=== PATIENT | male | born 1955 | race Caucasian/White ===

== ENCOUNTER → 2017-09-10 08:26 | Outpatient (CLI) | payer OTHER, SELFPAY ==
[2017-09-10 10:24] LABS: BUN 18 mg/dL (7-18); Calcium,Total 8.2 mg/dL (8.5-10.1); Cholesterol 156 mg/dL (200); Creatinine, Serum 0.78 mg/dL (0.70-1.30); EST Glomerular Filtration Rate 107 mL/min (>60); Est Glom Filt Rate - Afr Amer 130 mL/min (>60); Glucose 107 mg/dL (74-106); Triglycerides 53 mg/dL
[2017-09-10 10:25] LABS: Anion Gap 4 (5-15); Chloride 107 mmol/L (98-107); High Density Lipoprotein 44 mg/dL; PSA,Total - Annual Screen 0.28 ng/mL (0.00-4.00); Sodium Level 141 mmol/L (136-145); Very Low Density Lipoprotein 11 mg/dL (5-40)
[2017-09-10 10:26] LABS: Hemoglobin A1c 5.8 % (4.2-6.3)
== END ==
PROVIDERS: Family Provider Family Medicine; PCP Family Medicine; Visit Provider Family Medicine
DX: I10 Essential (primary) hypertension (principal); R73.09 Other abnormal glucose; E78.00 Pure hypercholesterolemia, unspecified; Z12.5 Encounter for screening for malignant neoplasm of prostate
CPT/HCPCS: 36415; 80048; 80061; 83036; 84153; G0103

== ENCOUNTER → 2018-08-12 | Outpatient (CLI) | payer OTHER, SELFPAY ==
[2018-08-12 09:06] LABS: Hemoglobin A1c 5.9 % (4.2-6.3)
[2018-08-12 09:14] LABS: Anion Gap 4 (5-15); BUN 13 mg/dL (7-18); BUN/Creat Ratio 15.4 RATIO (10-20); Calcium,Total 8.4 mg/dL (8.5-10.1); Chloride 108 mmol/L (98-107); Cholesterol 177 mg/dL (200); Creatinine, Serum 0.84 mg/dL (0.70-1.30); EST Glomerular Filtration Rate 98 mL/min (>60); Est Glom Filt Rate - Afr Amer 118 mL/min (>60); Glucose 124 mg/dL (74-106); High Density Lipoprotein 42 mg/dL; Potassium 4.4 mmol/L (3.5-5.1); Sodium Level 144 mmol/L (136-145); Triglycerides 100 mg/dL; Very Low Density Lipoprotein 20 mg/dL (5-40)
== END | disposition home or self-care (01) ==
LOC: LAB 07:11
PROVIDERS: Family Provider Family Medicine; PCP Family Medicine; Referring Provider Family Medicine; Visit Provider Family Medicine
DX: R73.09 Other abnormal glucose (principal); E78.00 Pure hypercholesterolemia, unspecified; I10 Essential (primary) hypertension
CPT/HCPCS: 36415; 80048; 80061; 83036

== ENCOUNTER → 2019-06-08 | Outpatient (CLI) | payer OTHER, SELFPAY ==
[2019-06-08 10:37] LABS: ALB/GLOB Ratio 1.2 RATIO (0.9-2.4); AST(SGOT) 20 U/L (15-37); Alanine Aminotransfer ALT/SGPT 55 U/L (16-61); Albumin, Serum 4.1 g/dL (3.2-5.0); Alkaline Phosphatase 90 U/L (45-117); Anion Gap 4 (5-15); BUN 11 mg/dL (7-18); BUN/Creat Ratio 12.4 RATIO (10-20); Calcium,Total 8.7 mg/dL (8.5-10.1); Chloride 104 mmol/L (98-107); Cholesterol 192 mg/dL (200); Creatinine, Serum 0.89 mg/dL (0.70-1.30); EST Glomerular Filtration Rate 92 mL/min (>60); Est Glom Filt Rate - Afr Amer 112 mL/min (>60); Globulin 3.3 g/dL (2.2-4.2); Glucose 115 mg/dL (74-106); High Density Lipoprotein 40 mg/dL; PSA,Total - Annual Screen 0.27 ng/mL (0.00-4.00); Potassium 3.8 mmol/L (3.5-5.1); Protein, Total 7.4 g/dL (6.4-8.2); Sodium Level 140 mmol/L (136-145); Triglycerides 116 mg/dL; Very Low Density Lipoprotein 23 mg/dL (5-40)
== END | disposition home or self-care (01) ==
LOC: LAB 08:45
PROVIDERS: PCP Family Medicine; Referring Provider Family Medicine; Visit Provider Family Medicine
DX: I10 Essential (primary) hypertension (principal); E78.00 Pure hypercholesterolemia, unspecified; Z12.5 Encounter for screening for malignant neoplasm of prostate
CPT/HCPCS: 36415; 80053; 80061; 84153; G0103

== ENCOUNTER → 2020-06-10 06:04 | Outpatient (CLI) | payer OTHER, SELFPAY ==
[2020-06-10 07:22] LABS: ALB/GLOB Ratio 1.3 RATIO (0.9-2.4); AST(SGOT) 18 U/L (15-37); Alanine Aminotransfer ALT/SGPT 44 U/L (16-61); Albumin, Serum 4.1 g/dL (3.2-5.0); Alkaline Phosphatase 85 U/L (45-117); Anion Gap 5 (5-15); BUN 17 mg/dL (7-18); BUN/Creat Ratio 18.3 RATIO (10-20); Calcium,Total 8.7 mg/dL (8.5-10.1); Chloride 106 mmol/L (98-107); Cholesterol 190 mg/dL (200); Creatinine, Serum 0.93 mg/dL (0.70-1.30); EST Glomerular Filtration Rate 87 mL/min (>60); Est Glom Filt Rate - Afr Amer 106 mL/min (>60); Globulin 3.1 g/dL (2.2-4.2); Glucose 120 mg/dL (74-106); High Density Lipoprotein 39 mg/dL; PSA,Total - Annual Screen 0.31 ng/mL (0.00-4.00); Potassium 3.8 mmol/L (3.5-5.1); Protein, Total 7.2 g/dL (6.4-8.2); Sodium Level 140 mmol/L (136-145); Triglycerides 105 mg/dL; Very Low Density Lipoprotein 21 mg/dL (5-40)
== END ==
PROVIDERS: PCP Family Medicine; Referring Provider Family Medicine; Visit Provider Family Medicine
DX: I10 Essential (primary) hypertension (principal); Z12.5 Encounter for screening for malignant neoplasm of prostate
CPT/HCPCS: 36415; 80053; 80061; 84153; G0103

== ENCOUNTER 2021-07-03 07:08 | Outpatient (CLI) | payer OTHER, SELFPAY ==
[2021-07-03 07:50] LABS: Microalbumin:Creatinine Ratio 5.2 mg/g CRE (<30 mg/g CRE)
[2021-07-03 08:00] LABS: ALB/GLOB Ratio 1.4 RATIO (0.9-2.4); AST(SGOT) 15 U/L (15-37); Alanine Aminotransfer ALT/SGPT 27 U/L (16-61); Albumin, Serum 4.2 g/dL (3.2-5.0); Alkaline Phosphatase 96 U/L (45-117); Anion Gap 2 (5-15); BUN 14 mg/dL (7-18); BUN/Creat Ratio 17.1 RATIO (10-20); Calcium,Total 8.9 mg/dL (8.5-10.1); Chloride 104 mmol/L (98-107); Cholesterol 163 mg/dL (200); Creatinine, Serum 0.82 mg/dL (0.70-1.30); EST Glomerular Filtration Rate 101 mL/min (>60); Est Glom Filt Rate - Afr Amer 122 mL/min (>60); Globulin 3.1 g/dL (2.2-4.2); Glucose 130 mg/dL (74-106); High Density Lipoprotein 47 mg/dL; Potassium 3.8 mmol/L (3.5-5.1); Protein, Total 7.3 g/dL (6.4-8.2); Sodium Level 139 mmol/L (136-145); Triglycerides 86 mg/dL; Very Low Density Lipoprotein 17 mg/dL (5-40)
== END 2021-07-03 23:59 | disposition home or self-care (01) ==
PROVIDERS: PCP Nurse Practitioner Family; Referring Provider Nurse Practitioner Family; Visit Provider Nurse Practitioner Family
DX: E78.00 Pure hypercholesterolemia, unspecified (principal); I10 Essential (primary) hypertension
CPT/HCPCS: 36415; 80053; 80061; 82043; 82570

== ENCOUNTER → 2022-04-20 | Outpatient (CLI) | payer MEDICARE, OTHER, SELFPAY ==
[2022-04-20 15:11] LABS: Absolute Lymphocyte Count 1.07 X10^3/uL (0.83-4.51); Basophil# 0.03 X10^3/uL; Basophil% 0.6 % (0-1); Eosinophil# 0.06 X10^3/uL; Eosinophils% 1.3 % (0-5); Hematocrit 43.5 % (40-54); Lymphocyte # 1.07 X10^3/ul (0.83-4.51); Lymphocyte % 23.1 % (19-41); Mean Corp Hgb Conc 34.5 g/dL (32-36); Mean Corpuscular Hgb 32.2 pg (27.0-32.0); Mean Corpuscular Volume 93.3 fL (80-94); Mean Platelet Vol. 9.5 fl (6.2-12.0); Monocyte# 0.43 X10^3/uL; Monocyte% 9.3 % (0-10); NRBC Flagged by Analyzer 0 % (0-5); Neutrophil # 3.02 X10^3/uL (2.7-7.7); Neutrophil % 65.3 % (47-70); Platelet Count 245 K/mm3 (150-450); RBC Distribution Width CV 12.8 % (11.6-14.6); RBC Distribution Width SD 43.8 fl (35.1-43.9); Red Blood Count 4.66 M/mm3 (4.6-6.2); White Blood Count 4.6 K/mm3 (4.4-11.0)
[2022-04-20 15:30] LABS: Hemoglobin A1c 5.6 % (3.8-5.6)
[2022-04-20 15:31] LABS: ALB/GLOB Ratio 1.4 RATIO (0.9-2.4); AST(SGOT) 10 U/L (15-37); Alanine Aminotransfer ALT/SGPT 25 U/L (16-61); Albumin, Serum 4.2 g/dL (3.2-5.0); Alkaline Phosphatase 95 U/L (45-117); Anion Gap 8 (5-15); BUN 13 mg/dL (7-18); BUN/Creat Ratio 17.4 RATIO (10-20); Chloride 102 mmol/L (98-107); Cholesterol 179 mg/dL (200); Creatinine, Serum 0.74 mg/dL (0.70-1.30); EST Glomerular Filtration Rate 112 mL/min (>60); Est Glom Filt Rate - Afr Amer 135 mL/min (>60); Globulin 2.9 g/dL (2.2-4.2); Glucose 110 mg/dL (74-106); High Density Lipoprotein 52 mg/dL; PSA,Total - Annual Screen 0.35 ng/mL (0.00-4.00); Potassium 3.7 mmol/L (3.5-5.1); Protein, Total 7.1 g/dL (6.4-8.2); Sodium Level 142 mmol/L (136-145); Triglycerides 88 mg/dL; Very Low Density Lipoprotein 18 mg/dL (5-40)
[2022-04-20 15:36] LABS: Microalbumin,Random Urine < 5.0 mg/L (NO RANGE EST.)
== END | disposition home or self-care (01) ==
PROVIDERS: PCP Family Medicine; Visit Provider Family Medicine
DX: I10 Essential (primary) hypertension (principal); R73.01 Impaired fasting glucose; E78.00 Pure hypercholesterolemia, unspecified; Z12.5 Encounter for screening for malignant neoplasm of prostate
CPT/HCPCS: 36415; 80053; 80061; 82043; 83036; 84153; 85025; G0103

== ENCOUNTER 2022-05-12 08:56 | Observation (INO) | payer MEDICARE, OTHER, SELFPAY ==
--- NOTE | 2022-04-25 06:48 | HP.PCM_ITS ---
History and Physical History and Physical [facility] Patient Name: Drew Jarvis : 1955 From:? VIRGINIE SAAB PA-C? DATE OF SURGERY:? 05/12/2022 SCHEDULED PROCEDURE:? Left total hip arthroplasty HISTORY OF PRESENT ILLNESS: Preoperative history and physical exam was performed on April 23, 2022.? This is a 66-year-old male who is been having ongoing left hip pain for over 4 years.? His pain is been constant, dull, aching, sharp, stabbing, sore.? Pain is increased with going up and down stairs, driving, sitting and walking.? Patient does have start up pain.? Pain is located at the anterior thigh.? He does occasionally wake him at night.? He has difficulty with activities of daily living including bathing/showering, getting dressed, housework, shopping and lawn work.? Patient has tripped/stumbled and fallen secondary to hip pain.? He feels unsafe walking without any cane for long distances.? He has been using a cane and walker as needed.? Pain does awaken him at night.? He has tried oral medications including diclofenac with minimal relief.? He has tried rest, ice, heat, elevation without relief.? Patient denies previous surgery on the left.? He has had left ankle fracture in 2018 with ongoing limp since that injury and surgery.? He has medical history pertinent for hypercholesterolemia and hypertension.? Denies any recent chest pain, shortness of breath, fevers chills or recent infection.? We are obtaining surgical clearance from the primary care provider Dr. Howard.? He does report already having an EKG and lab work from the primary care physician.? After failing conservative measures and discussing treatment options with Dr. Bi Herbert, the patient does wish to proceed with left total hip arthroplasty. REVIEW OF SYSTEMS: Review Of Systems: Constitutional: Denies change in appetite, fever and weight change. Cardiovasular: Denies chest pain, heart murmur and irregular heartbeat. Respiratory: Denies cough, pneumonia, shortness of breath, tuberculosis and wheezing. Gastrointestinal: Denies constipation, diarrhea, heartburn, nausea, rectal itching, bloody stools and vomiting. Musculoskeletal: Reports leg swelling, pain, trouble walking and weakness. Skin: Denies Raynaud's, history of shingles and tattoo. Neurological: Denies ambulatory dysfunction, dizziness, numbness/tingling and tremor. Psychiatric: Denies anxiety, insomnia and stress. Hematologic/Lymphatic: Denies anemia, bleeding/bruising tendency and past transfusion. Reviewed, no changes. PAST MEDICAL HISTORY: Advance Care Plan: Past Medical History: Medical Problems: High Blood Pressure, Hypercholesterolemia, Covid 19 Accidents: Fracture - (02/04/2005) LT ANKLE Surgical Hx: Tonsillectomy - Age 14 Open reduction and internal fixation - LT Ankle fx at [facility] Dr. Del Angel Anesthesia Complications: None Assistive Devices: Brace, Dentures, Walker, Glasses, Cane Reviewed and updated. 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 Personal Habits:? Cigarette Use: Never Smoked Cigarettes.Smokeless Tobacco: Former User.E-Cigarette Use: Never used.Alcohol: Daily.Drug Use: Denies Use.Enjoy Exercising: Exercises 1-3 x/month. Reviewed and updated. VITALS: Ht: 70 Wt: 234lb Wt k.142 BMI: 33.6 BP: 138/82 Pulse: 74 Resp: 13 T: 97.5 T: 36.4C Pain Level: 7 O2SatR: 95 ALLERGIES: No Known Drug Allergy? MEDICATIONS: Amlodipine Besylate 10 mg 1 by mouth every day, Lisinopril-Hydrochlorothiazide 20-12.5 mg 2 PO qdaily, Simvastatin 20 mg 1 by mouth every day, Diclofenac Sodium 75 mg 1po twice a day PRE-OP EXAM:? General appearance:NORMAL? ? ? Other: Eyes: Conjunctivae and lids: NORMAL? Pupils: ERR Ears, Nose, Mouth, and Throat: NORMAL? Other: Inspection of lips, teeth and gums: NORMAL? ?Other: Neck: Examination of neck: no masses noted. Respiratory: Assessment of respiratory effort: NORMAL? ?Other: ?Auscultation of lungs: clear to auscultation no wheezes, rhonchi or rales. Cardiovascular:? Auscultation of heart: regular rate and rhythm, positive systolic murmur PHYSICAL EXAMINATION: She does walk with an antalgic gait with use of cane.? Left hip has 15 flexion contracture, flexion 40, no internal or external rotation.? Crepitus with range of motion.? Significant weakness with hip flexion secondary to pain.? Sensation intact to light touch. IMAGING STUDIES: Review of x-rays of the left hip reveal joint space narrowing, subchondral sclerosis, osteophyte formation consistent with severe stage IV bone on bone osteoarthritis with associated bony erosions of the acetabulum and femoral head consistent with flattening and shortening of the extremity. IMPRESSION: 1.? Severe left hip osteoarthritis 2.? Hypertension 3.? Hypercholesterolemia PLAN: Dr. Bi Herbert did discuss and review with the patient all treatment options including surgical versus nonsurgical options.? Patient does wish to proceed with the above-stated procedure.? Potential risks, benefits, and complications of the procedure were discussed in detail including but not limited to , infection, nerve and blood vessel damage, persistent pain, numbness, tingling, paresthesias, blood clot, pulmonary embolism, and requirement for possible further surgery.? The patient expressed full understanding and has no further questions for the doctor.? Patient does agree to proceed with the above-stated procedure and has signed the surgery consent form. We discussed the current risks associated with COVID 19.? This does include the risk of exposure while in the hospital.? Patient was reassured local hospitals have low infection rates and are taking all necessary precautions to avoid exposure to patients.? In addition, we discussed strategies that can be used to help limit exposure including those that limit the patient's time in the hospital.? Also using strategies to limit the patient's need for continued i npatient services after being discharged from the hospital.? Patient was notified that we will need to comply with any screening or testing the hospital wishes to perform or that surgery may be delayed for any positive results. This dictation was created using voice recognition software. Phonetic and/or grammatical errors may exist. ___? I have re-examined the patient.? There are no clinical changes since date of exam. ___? See progress notes for changes. ___? Dictated on admission Date: ? ? ?Time: Signature:
[2022-04-27 15:49] LABS: Magnesium 2.3 mg/dL (1.6-2.6)
[2022-04-27 16:10] LABS: International Normalized Ratio 1.1
[2022-04-27 16:11] LABS: Partial Thromboplast Time 26.3 Seconds (24.1-36.2)
[2022-05-12] VITALS (14 sets, daily range): BP systolic 123–152; BP diastolic 71–80; PULSE 85–102; RESP 16–18; TEMP 36.4–37.2; O2SAT 94–100; BMI 33.4
[2022-05-12] MEDS: Lactated Ringers 1,000 ML 15 ML IV (07:30)
[2022-05-12] MEDS: Magnesium 1 GM over 15 mins IV (07:40)
--- NOTE | 2022-05-12 07:40 | HIP_PTH ---
PATIENT: MARTI PITTMAN LOC: MS3 U#:[id number] AGE/SX: 66/M ROOM: NE312 RE05/12/[address]: Dr. Bi Herbert MD : 1955 BED: 1 DIS: 05/13/2022 SPEC #: [id number] RECD: 05/12/22 11:24 STATUS: LOU OROZCO #: [id number] ALISSA: 05/12/22 07:[address]: Bi Herbert DEPT: SURGICAL PATHOLOGY RECD BY: [place] ENTERED: 05/12/22 13:44 SP TYPE: TOTAL HIP OTHR DR: Lanette Howard DO Tissues: Hip, NOS Procedures: Decalcification bone/plaque Surgery Specimen Level IV HEADER OPERATION: ERAS, total hip anterior approach PRE-OP DIAGNOSIS: Left hip osteoarthritis TISSUE SUBMITTED: Left femoral head MICROSCOPIC DIAGNOSIS Left femoral head, total hip resection: Severe degenerative joint disease. Mild synovial hyperplasia. AM:ladonna 05/17/2022 MICROSCOPIC DESCRIPTION Slides are reviewed. GROSS DESCRIPTION Received is one container labeled with the patient's name and designated left femoral head. The specimen consists of a deformed bobo femoral head measuring 6.5 x 6 x 4 cm. Also received is a bone consistent with portion of femoral neck measuring 5 x 4 x 2 cm. The articular surface displays prominent osteophyte formation, eburnation and bone erosion. Also present in the specimen container are multiple irregular fragments of bone reamings and pink-yellow soft tissue measuring in aggregate 5 x 4.5 x 1.5 cm. Accounts Payable Representative sections are submitted in two cassettes as follows: 1 - soft tissue, 2 - bone after decalcification. / SJ:ladonna 05/12/2022 TC:5 [facility]: [id number], [id number]
[2022-05-12] MEDS: Celecoxib 200 MG Capsule 400 MG PO (07:52)
[2022-05-12] MEDS: Acetaminophen 500 MG Tablet 1000 MG PO ×2 (07:52→15:15)
[2022-05-12] MEDS: Gabapentin 600 MG Tablet PO (07:52)
--- NOTE | 2022-05-12 08:40 | RAD_ITS ---
INDICATION: PAIN EXAMINATION/TECHNIQUE: X-RAY - LEFT XR Hip Unilateral with Pelvis when performed; 1 View COMPARISON: May 12, 2022 at 11:58 hours. FINDINGS: There is a left hip prosthesis in place in satisfactory alignment . Post surgical changes in the adjacent soft tissue. RAD/Hip 1 view with Pelvis IMPRESSION: Left hip prosthesis placement with post surgical changes. Electronically Signed: Zuhair Díaz DO at 22:08 EST ,
--- NOTE | 2022-05-12 08:55 | OP.PCM_ITS ---
Report of Operation Date of Procedure: 05/12/22 Pre-Operative Diagnosis: Left hip primary osteoarthritis Post-Operative Diagnosis: Left hip primary osteoarthritis Surgery/Procedure Performed:: Left minimally invasive direct anterior hip replacement Description of Surgical Findings:: Stable hip with equal leg lengths Surgeon: Bi Herbert healthcare facility administrator: Marquez Marie Type of Anesthesia: Spinal Anesthesiologist: Deyvi Adair Special Medications: 2 g Ancef, 1 g TXA at incision, 1 g TXA closure, 10 mg Decadron, joint cocktail (5 mg Duramorph, 30 mL of 0.5% Ropivicaine, 1000 units of epinephrine, 30 mg of Toradol) Specimen's removed: Bony cuts Estimated Blood Loss (mL): 450 mL Fluids Replaced: 700 mL crystalloid Description of Procedure: Components used: 1. Accolade 2 Nicolaus femoral stem size 7 127? 2. Lino trident 2 acetabular shell size 60 mm 3. Nicolaus X3 polyethylene G 4. Nicolaus Biolox delta 36mm, 5mm femoral head Brief history operative indications: 66 yo M who failed conservative measures for their hip osteoarthritis. X-rays were consistent with osteoarthritis including joint space narrowing, osteophyte formation and subchondral cysts. Total hip replacement was discussed with the patient with risks and benefits including but not limited to blood loss, DVTs, PEs, neurovascular damage, dislocation, general risks of anesthesia including loss of life. Patient demonstrated an understanding medical clearance is obtained the patient was consented for surgery. Procedure: On the date of procedure the patient's L hip was marked in the preoperative area. Patient was then taken back to the operating room where anesthesia assumed control of the C-spine and airway and administered anesthetic. Patient was transferred to the operating table and placed in the supine position. The hips were placed at the break of the bed and a sacral bump was placed. L The lower extremity was then prepped out in a sterile fashion using chlorhexidine while the surgeon scrubbed. The PA was vital in the positioning of the patient. Upon reentering the room the left lower extremity was draped in the standard orthopedic fashion and the incision was marked. A timeout was called and e veryone agreed upon the side, the site, the procedure be performed, antibody given, and patient's identity. At this time incision was made through skin, subcutaneous tissue, and fat down to fascia. The fascia was then incised and the TFL was retracted laterally. A retractor was placed on the lateral border of the femoral neck. Attention was directed to the inferior portion of the approach and all crossing vessels were identified and appropriately coagulated. A retractor was then placed on the medial portion of the femoral neck. The anterior capsule was then cleared of all soft tissue and then H shaped capsulotomy was made. The retractors were then placed inside the capsule. The femoral neck was identified and a cleanup cut was made. At this time a power corkscrew was used to remove the femoral head. Attention was then turned toward the acetabulum where the soft tissues were appropriately retracted and the acetabulum was sequentially reamed to 60 mm. A 60 mm cup was then selected and impacted into place. Acetabular liner was impacted into place and locking mechanism was verified. The position of the acetabular cup was then verified under live fluoroscopy. Attention was then turned to the femur. Soft tissue releases on the medial and lateral femoral neck were appropriately done, the leg was externally rotated and lateralized. A Guerra retractor was placed medially and proximally to the greater trochanter this allowed appropriate visualization and exposure of the femoral canal. Rongeour was then used to remove excess lateral bone. A canal finder and entry broach were used to open the proximal canal. Once we verified we were down the femoral canal we subsequently broached up to a size 7 femur. The appropriate neck was placed in the previously selected head was trialed with a 5 mm neck. Traction was pulled and the hip was reduced with internal rotation. Once it was appropriately reduced and stability was checked. There was minimal shuck, equal leg lengths and appropriate stability with hyperextension and external rotation as well as with 90? flexion and internal rotation. Fluoroscopy was then also used to verify the position of the componen ts and leg lengths using the contralateral side for comparison. The trial components were then dislocated the proximal femur was again exposed and the components were removed from the wound. The final components were verified and opened. The wound was copiously irrigated out with normal saline. The acetabulum was checked for any residual debris. The final components were placed and impacted. Traction and internal rotation were again used to reduce the hip. After adequate reduction the hip remained stable with appropriate leg lengths. The final components were once again checked with live fluoroscopy and were found to be satisfactory. The wound was then copiously irrigated with normal saline once more, and hemostasis was obtained. Closure was then done using #1 Vicryl runner to close the fascia. A 2-0 vicryl interuppted sutures were used to close the subcutaneous skin. A 3-0 Monocryl and Steri-Strips were used for final skin closure. A Silverlon dressing was placed. Patient was awakened by anesthesia and transferred to the [facility]. Patient was then transferred to the PACU for recovery. During the course of the procedure the physician safety investigator/cause analyst (PE) played a vital role. Their intimate knowledge of my steps in the procedure aided in safe and expedient completion of the procedure. The PE played a vital rolls in positioning particularly in obtaining the appropriate positioning of the sacral bump. The PE was also vital in the retraction of soft tissues during the exposure and especially the femoral work as this is a vital part of the procedure to prevent complications and fractures. The PE was also vital and protecting soft tissues during times of bony cuts and reaming. He also played a vital role in closure with my direct supervision. The PE was also important during reduction and dislocation of the joint and trials intraoperatively. Postoperative plan: Patient will get 24 hours postop antibiotics. Patient will get in-house physical therapy and will be weight-bear as tolerated. Patient will follow up in office in 2 weeks for a wound check and x-rays. Aspirin 81 mg twice daily. Complications No intraoperative complications Admit VTE Documentation VTE Present on Admission: No VTE Mechan Device Prophylaxis: SCD's and Thigh High RL Hose VTE Pharm Prophylaxis ordered?: Yes
--- NOTE | 2022-05-12 08:57 | RAD_ITS ---
STUDY: X-RAY - PELVIS AND LEFT HIP REASON FOR EXAM: Male, 66 years old. Post Op -- AP both hips on single radha/lateral of op hip PACU TECHNIQUE: 2 views of the pelvis and hip. COMPARISON: None. FINDINGS: The patient is status post left hip replacement. There is good alignment. Postoperative soft tissue changes. Calcified phleboliths are seen in the left hemipelvis. RAD/Hip Min 2 Views (Portable) IMPRESSION: Status post left total hip replacement. There is good alignment. Postoperative soft tissue changes. Electronically Signed: Sreekanth Santiago MD at 13:02 EST ,
[2022-05-12] MEDS: Cefazolin 2 GM in 0.9% Normal Saline 100 ML IV (09:40)
[2022-05-12] MEDS: dexAMETHasone 10 MG/ML Vial IV (09:50)
[2022-05-12] MEDS: TXA 1000mg in NS100 100ml (IVPB at Incision) 660 MG IV (09:50)
[2022-05-12] MEDS: TXA 1000mg in NS100 100ml (IVPB at Closure) 660 MG IV (10:53)
[2022-05-12 11:40] LABS: Bedside Glucose 112 mg/dL (74-106)
[2022-05-12] MEDS: Lactated Ringers 1,000 ML 999 ML IV ×2 (11:40→11:45)
--- NOTE | 2022-05-12 14:38 | PCM.PN.HOSP ---
Subjective Subjective Consult requested by Dr. Herbert for post-op medical mgmt. Pt currently feels well. Denies complaints. Objective Data Objective Data Vital Signs: Vital Signs Temp Pulse Resp BP Pulse Ox O2 Del Method O2 Flow Rate 36.4 C L 85 18 147/80 H 98 Nasal Cannula 4 05/12/22 13:29 05/12/22 13:29 05/12/22 13:29 05/12/22 13:29 05/12/22 13:29 05/12/22 13:29 05/12/22 13:29 Oxygen Flow Rate (L/min) 4 Oxygen Delivery Method Nasal Cannula Weight: 105.687 kg Body Mass Index (BMI) 33.4 Intake & Output: Intake and Output for Last 24 Hours 05/10/22 05/11/22 05/12/22 23:59 23:59 23:59 Intake Total 3432 / 3432 Balance 3432 / 3432 Lab / Micro Data Labs: Laboratory Results - last 24 hr 05/12/22 07:34: POC Glucose 112 H Micro: Microbiology 04/27/22 14:46 Swab (Method) Nasal Screen MRSA/MSSA - Final Radiography Diagnostic Testing: Radiology Impression Hip X-Ray 05/12/22 08:57 IMPRESSION: Status post left total hip replacement. There is good alignment. Postoperative soft tissue changes. Electronically Signed: Sreekanth Santiago MD at 13:02 EST , Physical Exam Const alert and no apparent distress Constitutional Narrative: no respiratory distress. no conversational dyspnea. on room air. Resp normal respiratory effort, no retractions and no use of accessory muscles Cardio regular rate, regular rhythm, S1 normal heart sound and S2 normal heart sound GI normal to inspection, nondistended, normoactive bowel sounds, soft to palpation, non-tender and non-distended Extremity normal to inspection Neuro Sensorium / Orientation: awake and alert Assessment & Plan Assessment/Plan (1) Post-operative state: PLAN: stable. On room air medically stable for discharge PLAN: Plan s/p left hip replacement: mgmt per ortho HTN: continue amlodipine, lisinopril/HCTZ HLP: cont HLP The hospitalist service will sign off given no active medial conditions at present. Please reconsult if new issues arise or call with questions. Thank you. Charges/Coding Visit Charges Inpatient E&M: 71118 Subs Hosp L2
[2022-05-12] MEDS: Cefazolin 1 GM/50 ML BAG IV (17:11)
[2022-05-12] MEDS: hydroCHLOROthiazide 12.5mg 25 MG PO (17:12)
[2022-05-12] MEDS: Lisinopril 20 MG Tablet 40 MG PO (17:12)
[2022-05-12] MEDS: Famotidine 20 MG Tablet PO (17:13)
[2022-05-12] MEDS: Cholecalciferol (VIT D3) 25 MCG TABLET (1,000 UNITS) PO (17:13)
[2022-05-12] MEDS: Aspirin 81 MG TAB.CHEW PO (17:13)
[2022-05-12] MEDS: 0.9% Saline Lock 10 ML Syringe IV ×2 (17:14→20:49)
[2022-05-12] MEDS: Atorvastatin Calcium 10 MG Tablet PO (20:49)
[2022-05-12] MEDS: amLODIPine 10 MG Tablet PO (20:49)
[2022-05-12] MEDS: Senna/Docusate Sodium 1 Tablet 2 TABLET PO (20:49)
[2022-05-13 00:05] VITALS: BP 129/81; PULSE 81; RESP 16; TEMP 36.5; O2SAT 95
[2022-05-13] MEDS: Acetaminophen 500 MG Tablet 1000 MG PO ×2 (00:05→08:53)
[2022-05-13] MEDS: Cefazolin 1 GM/50 ML BAG IV (02:06)
[2022-05-13 05:15] VITALS: BP 139/75; PULSE 76; RESP 18; TEMP 36.5; O2SAT 98
[2022-05-13] MEDS: 0.9% Saline Lock 10 ML Syringe IV (05:22)
[2022-05-13 06:34] LABS: Hematocrit 35.6 % (40-54); Hemoglobin 11.9 g/dL (13.0-16.5); Mean Corp Hgb Conc 33.4 g/dL (32-36); Mean Corpuscular Hgb 31.2 pg (27.0-32.0); Mean Corpuscular Volume 93.2 fL (80-94); Mean Platelet Vol. 9.4 fl (6.2-12.0); Platelet Count 202 K/mm3 (150-450); RBC Distribution Width CV 12.6 % (11.6-14.6); RBC Distribution Width SD 42.9 fl (35.1-43.9); Red Blood Count 3.82 M/mm3 (4.6-6.2); White Blood Count 12.4 K/mm3 (4.4-11.0)
[2022-05-13 07:24] LABS: Anion Gap 9 (5-15); BUN 13 mg/dL (7-18); BUN/Creat Ratio 17.3 RATIO (10-20); Calcium,Total 8.9 mg/dL (8.5-10.1); Chloride 103 mmol/L (98-107); Creatinine, Serum 0.75 mg/dL (0.70-1.30); EST Glomerular Filtration Rate 111 mL/min (>60); Est Glom Filt Rate - Afr Amer 134 mL/min (>60); Estimated Creatinine Clearance 101.39 ml/min; Glucose 178 mg/dL (74-106); Potassium 3.8 mmol/L (3.5-5.1); Sodium Level 140 mmol/L (136-145)
--- NOTE | 2022-05-13 08:47 | PN.ORTHO_ITS ---
Subjective Subjective The patient was sitting in bed upon examination. Patient denies any chest pain, shortness of breath, dizziness, lightheadedness, nausea or vomiting, or calf pain. Pain is controlled on medications. No adverse overnight events. Patient is very pleased with outcome of surgery. Pain has been minimal. He does have some thigh pain. Objective Data Objective Data Vital Signs: Vital Signs Temp Pulse Resp BP Pulse Ox O2 Del Method O2 Flow Rate 97.7 F L 76 18 139/75 H 98 Room Air 4 05/13/22 05:15 05/13/22 05:15 05/13/22 05:15 05/13/22 05:15 05/13/22 05:15 05/13/22 05:15 05/12/22 13:29 Oxygen Flow Rate (L/min) 4 Oxygen Delivery Method Room Air Weight: 105.687 kg Body Mass Index (BMI) 33.4 Intake & Output: Intake and Output for Last 24 Hours 05/11/22 05/12/22 05/13/22 23:59 23:59 23:59 Intake Total 4307.25 / 4307.25 207.25 / 207.25 Output Total 675 / 675 900 / 900 Balance 3632.25 / 3632.25 -692.75 / -692.75 Lab / Micro Data Result Diagrams: 05/13/22 05:59 05/13/22 05:59 Labs: Laboratory Results - last 24 hr 05/12/22 07:34: POC Glucose 112 H 05/13/22 05:59: WBC 12.4 H, RBC 3.82 L, Hgb 11.9 L, Hct 35.6 L, MCV 93.2, MCH 31.2, MCHC 33.4, RDW Std Deviation 42.9, RDW Coeff of Colette 12.6, Plt Count 202, MPV 9.4 05/13/22 05:59: Sodium 140, Potassium 3.8, Chloride 103, Carbon Dioxide 28.0, Anion Gap 9, BUN 13, Creatinine 0.75, Estim Creat Clear Calc 101.39, Est GFR (MDRD) Af Amer 134, Est GFR (MDRD) Non-Af 111, BUN/Creatinine Ratio 17.3, Glucose 178 H, Calcium 8.9 Micro: Microbiology 04/27/22 14:46 Swab (Method) Nasal Screen MRSA/MSSA - Final Radiography Diagnostic Testing: Radiology Impression Hip/Pelvis X-Ray 05/12/22 08:40 IMPRESSION: Left hip prosthesis placement with post surgical changes. Electronically Signed: Zuhair Díaz DO at 22:08 EST , Hip X-Ray 05/12/22 08:57 IMPRESSION: Status post left total hip replacement. There is good alignment. Postoperative soft tissue changes. Electronically Signed: Sreekanth Santiago MD at 13:02 EST , Physical Exam Narrative Vital signs stable and afebrile. SCDs and RL hose are in place bilaterally Left thigh is soft and supple Patient is able to plantarflex and dorsiflex actively. Sensation is intact to light touch to saphenous, sural, superficial and deep peroneal, and tibial distribution. Dressing is clean dry and intact. Negative Homans bilaterally, negative signs and symptoms of DVT. Const alert, oriented x3 and no apparent distress Assessment & Plan Assessment/Plan (1) S/P total left hip arthroplasty: PLAN: 1. S/P left direct anterior total hip arthroplasty POD #1 2. Continue Pain Medications: Tylenol, meloxicam, oxycodone. Do not take any other nonsteroidal anti-inflammatories while using meloxicam/Mobic. Patient has not required any oxycodone at this time. I will give him a small prescription that he will use for breakthrough pain. 3. DVT Prophylaxis: Take 81 mg aspirin twice daily for 4 weeks postoperatively for DVT prophylaxis. Patient denies any previous history of DVT or pulmonary embolism 4. PT/OT: Weightbearing as tolerated with walker 5. H & H: 11.9/35.6, asymptomatic. Postoperative anemia secondary to acute blood loss from surgery without any intra operative complications. 6. Reactive leukocytosis: Currently 12.4, afebrile. Patient did receive Decadron intraoperatively 7. Continue postoperative medical management per medicine 8. Encouraged Incentive Spirometry 9. Disposition: Plan will be for discharge home today as long as patient tolerates therapy, pain is well controlled, and medically stable. He does have outpatient physical therapy established. He will follow-up per postop instructions. Patient would like his prescriptions E scribed to [facility]. He will contact our office upon discharge with any concerns or questions. I have reviewed the [place] Automated Rx Reporting System (OARRS) report for this patient for refill pattern and other prescriber involvement as part of the appropriate surveillance for the provision of acute and chronic controlled medications. The report was requested and reviewed on the date of this entry and was considered in the prescribing process. This dictation was created using voice recognition software. Phonetic and/or grammatical errors may exist.
[2022-05-13 08:50] VITALS: BP 139/84; PULSE 84; RESP 18; TEMP 36.8; O2SAT 97
--- NOTE | 2022-05-13 08:51 | DCINST_ITS ---
Discharge Instructions Diet Discharge Diet: No restrictions Activity Discharge Activity: May Not Drive (Must be able to walk 100 feet without the use of a cane/walker and off narcotic pain medications.) May shower in (days): 1 (only if incision is dry and without drainage. Do NOT soak/submerge in tub/pool/[place]adwick/stream/hot tub.)) Ice area for (Minutes): 20 (Every 1-2 hours [address] barrier between ice and skin.) Weight Bearing Status: Weight bearing as tolerated (With walker) Keep extremity elevated above heart level: Operative Extremity Additional Activity Instructions:: Follow [facility] Post-op Instructions. Once postoperative dressing has been removed only use gentle soap and water over the incision. Do not use any ointments, Neosporin, salves, alcohol pads over the incision for 6 weeks postoperatively. Do not submerge underwater for 6 weeks postoperatively. Wear elastic stockings for 2 weeks. Do NOT use alcohol with narcotic pain medication. Do NOT make important decisions while taking narcotic medication. If you have problems with taking your medication (rash, itching, nausea, etc.) call the off ice at once. Dressing / Incision Call your doctor if your incision/area has: Continuous Slow Oozing, Sudden Increased Bleeding, Increased Pain/ Swelling, Increased Redness and Foul Smelling Discharge Call your doctor if you observe: Fever of 101 or Higher, Shortness of breath, Chest pain, Calf discomfort and Uncontrolled pain Remove Dressing in: 4 days (Okay to remove dressing on May 17, 2022) Additional Dressing/Incision Instructions:: Follow [facility] Post-op Instructions. Once postoperative dressing has been removed, only use gentle soap and water over the incision. Do not use any ointments, Neosporin, salves, alcohol pads over the incision for 6 weeks postoperatively. Do not submerge underwater for 6 weeks postoperatively. Continue with RL hose/elastic stockings for 2 weeks postoperatively. May remove at nighttime but needs to be placed back on the leg during the day. Do NOT use alcohol with narcotic pain medication. Do NOT make important decisions while taking narcotic medication. If you have problems with taking your medication (rash, itching, nausea, etc.) call the office at once. Follow Up Care Test Results: Test results from this visit will be discussed in further detail at your follow- up appointment, if applicable. Discharge Plan Admission Admit Date/Time: 05/12/22 08:56 Attending Provider: Bi Herbert Primary Care Provider: Lanette Howard Consulting Providers: Drew Lewis Discharge Orders/Prescriptions Prescriptions: New acetaminophen 500 mg Tablet 1,000 mg PO Q8H 14 Days Qty: 100 0RF Rx Instructions: Do not take more than 3000 mg Tylenol in a 24-hour period. aspirin 81 mg Tablet,Chewable 81 mg PO BID 30 Days Qty: 60 0RF Rx Instructions: Take 81 mg aspirin twice daily for 4 weeks postoperatively for DVT prophylaxis. meloxicam 7.5 mg Tablet 7.5 mg PO BID 30 Days Qty: 60 0RF famotidine 20 mg Tablet 20 mg PO DAILY Qty: 30 0RF oxycodone 5 mg Tablet 5 - 10 mg PO Q4H PRN PRN (Reason: Pain Score 4-10) 5 Days Qty: 36 0RF sennosides-docusate sodium [Stool Softener-Stimulant Laxat] 8.6-50 mg Tablet 2 tab PO BID 3 Days Qty: 12 0RF Rx Instructions: Take until first bowel movement, then as needed Continued lisinopril-hydrochlorothiazide 20-12.5 mg tablet 2 tab PO DAILY Label Comments: TAKE 2 TABLETS BY MOUTH DAILY amlodipine 10 mg tablet 10 mg PO QHS Label Comments: TAKE 1 TABLET BY MOUTH EVERYDAY AT BEDTIME simvastatin 20 mg tablet 20 mg PO QHS Label Comments: TAKE 1 TABLET BY MOUTH EVERY DAY cholecalciferol (vitamin D3) [Vitamin D3] 25 mcg (1,000 unit) Tablet 25 mcg PO DAILY Referrals / Follow Up: Lanette Howard DO [Primary Care Provider] - Marquez Marie PA-C [Med Staff - [facility] Prof] - 05/27/22 1:45 pm Physical,Therapy [Other] - 05/17/22 10:00 am Disposition Disposition (needs filled in before D/C Order can be placed): Home, Self Care
[2022-05-13] MEDS: Senna/Docusate Sodium 1 Tablet 2 TABLET PO (08:53)
[2022-05-13] MEDS: Cholecalciferol (VIT D3) 25 MCG TABLET (1,000 UNITS) PO (08:54)
[2022-05-13] MEDS: Lisinopril 20 MG Tablet 40 MG PO (08:54)
[2022-05-13] MEDS: Aspirin 81 MG TAB.CHEW PO (08:54)
[2022-05-13] MEDS: Famotidine 20 MG Tablet PO (08:54)
[2022-05-13] MEDS: hydroCHLOROthiazide 12.5mg 25 MG PO (08:54)
[2022-05-13 10:09] VITALS: O2SAT 94
--- NOTE | 2022-05-13 10:37 | CASEMGMT ---
FRANCESCO MARIANO Assessment: Face to Face with pt for initial transition planning/care coordination assessment. FRANCESCO MARIANO introduced self and role at [facility], pt voices understanding and consents to assessment. Pt is A/O x4 and answers all questions appropriately at this time. Pt sitting up in chair in no distress, just finished therapy. Care providers, pharmacy, and demographics verified/updated. Admitting Dx: Left anterior total hip PCP:Anita Specialists:hang Herbert; hang Sanches Preferred Pharmacy: [facility] [employer] Insurance: [facility], [facility] supp Prescription Benefit: yes LNOK: Corrina Jarvis, Living Arrangements: Pt lives with in a two story home with 2 steps to enter with a rail. Pt reports he was I in ADL's prior to surgery and can assist post surgery. Pt denies concerns at home. Transportation: Pt reports can transport him post surgery until he can drive again. DME/HHC/SNF: Pt has a shower chair, handheld shower, grab bars over toilet and a raised toilet as well as a FWW. Pt denies hx of HHC or SNF stays. Pt states no concerns with going home at time of dc. He has outpt therapy set up to start tomorrow at [facility]. Pt requests medications be sent to his room. TC to [facility] [employer], spoke with Sruthi, she states cost is $31.27. Pt does not have credit card with him. He called and provided her phone number to pharmacy, she will call in with info and meds will be delivered to the room. Pt states no further concerns/needs. CM to follow. Advised pt to ask CM if any further question/concerns/needs arise, voices understanding. Pt Goal: Home with outpt therapy set up Plan: Home with outpt therapy set up
[2022-05-13 11:48] VITALS: BP 154/61; PULSE 93; RESP 18; TEMP 36.7; O2SAT 94
== END 2022-05-13 12:45 | disposition home or self-care (01) ==
LOC: SDC 12:10 → MS3 12:10
PROVIDERS: Anesthesiology; Admitting Provider Specialist; PCP Family Medicine; Referring Provider Specialist; Visit Provider Specialist
PROC: (CPT 27284; principal; 2022-05-12 09:15)
DX: M16.12 Unilateral primary osteoarthritis, left hip (principal); I10 Essential (primary) hypertension; E78.00 Pure hypercholesterolemia, unspecified; Z79.899 Other long term (current) drug therapy; Z86.16 Personal history of COVID-19; M79.89 Other specified soft tissue disorders; Z87.891 Personal history of nicotine dependence
CPT/HCPCS: 27130; 01214; 36415; 73501; 73502; 76000; 80048; 82962; 83735; 85027; 85610; 85730; 87081; 88305; 88311; 94668; 94762; 96365; 96366; 97110; 97116; 97162; 97166; 97535; 99221; 99252; C1776; J7050; J7120; A4216; G0378; G0463; J2405; J3475

== ENCOUNTER → 2023-07-23 | Outpatient (CLI) | payer MEDICARE, OTHER, SELFPAY ==
[2023-07-23 08:15] LABS: ALB/GLOB Ratio 1.3 RATIO (0.9-2.4); AST(SGOT) 15 U/L (15-37); Alanine Aminotransfer ALT/SGPT 23 U/L (16-61); Albumin, Serum 3.8 g/dL (3.2-5.0); Alkaline Phosphatase 78 U/L (45-117); Anion Gap 3 (5-15); BUN 12 mg/dL (7-18); BUN/Creat Ratio 14.1 RATIO (10-20); Calcium,Total 8.5 mg/dL (8.5-10.1); Chloride 107 mmol/L (98-107); Cholesterol 172 mg/dL (200); Creatinine, Serum 0.85 mg/dL (0.70-1.30); EST Glomerular Filtration Rate 96 mL/min (>60); Est Glom Filt Rate - Afr Amer 116 mL/min (>60); Glucose 136 mg/dL (74-106); High Density Lipoprotein 49 mg/dL; PSA,Total - Annual Screen 0.39 ng/mL (0.00-4.00); Potassium 3.7 mmol/L (3.5-5.1); Protein, Total 6.8 g/dL (6.4-8.2); Sodium Level 141 mmol/L (136-145); Triglycerides 75 mg/dL; Very Low Density Lipoprotein 15 mg/dL (5-40)
[2023-07-23 10:07] LABS: Microalbumin,Random Urine 11.6 mg/L (NO RANGE EST.)
== END | disposition home or self-care (01) ==
LOC: LAB 07:21
PROVIDERS: PCP Family Medicine; Referring Provider Family Medicine; Visit Provider Family Medicine
DX: Z12.5 Encounter for screening for malignant neoplasm of prostate (principal); E78.00 Pure hypercholesterolemia, unspecified; I10 Essential (primary) hypertension
CPT/HCPCS: 36415; 80053; 80061; 82043; 82570; 84153; G0103

== ENCOUNTER → 2023-08-23 | Outpatient (CLI) | payer MEDICARE, OTHER, SELFPAY ==
--- NOTE | 2023-08-23 10:38 | ECHOD_ITS ---
Reason For Study: MURMUR Procedure This was a 2D Doppler, Color Flow transthoracic echocardiogram. Exam performed in department. Left Ventricle Normal LV size. Left ventricular systolic function is normal. The estimated ejection fraction is 60 %. Normal diastololic function. Right Ventricle Normal RV size. Normal systolic function. Atria The left atrium is moderately enlarged. Normal right atrium. Mitral Valve Mild mitral annular calcification. There is no mitral valve stenosis. Tricuspid Valve Normal tricuspid valve. Mild (1+) tricuspid valve insufficiency. Pulmonary artery systolic pressure is 31 mmHg. Aortic Valve Mild focal aortic valve calcification. Trisinus/trileaflet aortic valve. Aortic sclerosis, no stenosis. Pulmonic Valve Normal pulmonic valve. Trivial pulmonic valve insufficiency. Great Vessels Normal aortic root. Pericardium/Pleural No pericardial effusion. MMode/2D Measurements & Calculations LVIDd: 5.3 cm IVSd: 0.76 cm Ao root diam: 3.2 cm LVIDs: 3.6 cm LVPWd: 0.78 cm RVDd: 3.5 cm FS: 33.2 % LAV(MOD-bp): 60.0 ml LVAd ap4: 32.2 cm2 LVAd ap2: 31.4 cm2 LAV(MOD-bp) Indexed: 27.3 ml/m2 LVLd ap4: 8.4 cm LVLd ap2: 8.0 cm LAV(MOD-sp2): 56.9 ml EDV(MOD-sp4): 107.9 ml EDV(MOD-sp2): 106.5 ml LAV(MOD-sp4): 61.5 ml EDV(sp4-el): 104.0 ml EDV(sp2-el): 105.1 ml LVAs ap4: 16.7 cm2 LVAs ap2: 16.7 cm2 LVLs ap4: 6.4 cm LVLs ap2: 6.4 cm ESV(MOD-sp4): 38.4 ml ESV(MOD-sp2): 37.6 ml ESV(sp4-el): 36.7 ml ESV(sp2-el): 37.2 ml EF(MOD-sp4): 64.4 % EF(MOD-sp2): 64.7 % EF(sp4-el): 64.7 % SV(MOD-sp4): 69.5 ml SV(MOD-sp2): 68.9 ml SV(sp4-el): 67.3 ml LA dimension(2D): 4.5 cm LA A4 area: 19.8 cm2 RA A4 area: 18.6 cm2 TAPSE: 2.5 cm Time Measurements MV dec time: 0.21 sec Doppler Measurements & Calculations MV E max shade: 121.7 cm/sec Lat Peak E' Shade: 9.4 cm/sec Med Peak E' Shade: 8.9 cm/sec MV A max shade: 96.7 cm/sec E/E' lat: 13.0 E/E' med: 13.6 MV E/A: 1.3 MV V2 max: 120.6 cm/sec MV P1/2t max shade: 122.0 cm/sec Ao V2 max: 151.0 cm/sec MV max P.8 mmHg MV P1/2t: 59.2 msec Ao max P.1 mmHg MV V2 mean: 79.1 cm/sec MV dec slope: 603.3 cm/sec2 Ao V2 mean: 105.8 cm/sec MV mean P.8 mmHg Ao mean P.1 mmHg MV V2 VTI: 33.0 cm MVA(P1/2t): 3.7 cm2 Ao V2 VTI: 35.6 cm AV (velocity ratio): 0.73 LV V1 max: 114.6 cm/sec PA V2 max: 133.7 cm/sec TR max shade: 264.0 cm/sec LV V1 max P.3 mmHg PA V2 mean: 94.5 cm/sec TR max P.9 mmHg LV V1 mean P.0 mmHg LV V1 mean: 81.9 cm/sec LV V1 VTI: 26.1 cm ECHO/Echo Complete Interpretation Summary The estimated ejection fraction is 60 %. Normal diastololic function. Mild mitral annular calcification. Mild (1+) tricuspid valve insufficiency. Aortic sclerosis, no stenosis. The left atrium is moderately enlarged. Ordering Physician: Lanette Howard Referring Physician: Omi Gann Performed By: Nevin Cristobal RDCS, RVT
== END | disposition home or self-care (01) ==
PROVIDERS: PCP Family Medicine; Referring Provider Family Medicine; Visit Provider Family Medicine
DX: R01.1 Cardiac murmur, unspecified (principal)
CPT/HCPCS: 93306

== ENCOUNTER → 2023-10-24 | Outpatient (CLI) | payer OTHER, SELFPAY ==
--- NOTE | 2023-10-24 13:38 | VDLE_ITS ---
Reason For Study: Bilateral leg swelling RIGHT LEFT CFV is compressible, spontaneous, phasic, CFV is compressible, spontaneous, phasic, competent and demonstrates normal competent, and demonstrates normal augmentation. augmentation. FV is compressible, phasic, and INCOMPETENT FV is compressible, spontaneous, phasic, for greater than 1.0 second. competent and demonstrates normal POP V is compressible, spontaneous, phasic, augmentation. competent and demonstrates normal POP V is compressible, phasic, and augmentation. INCOMPETENT for greater than 1.0 second. T/P Trunk is compressible. T/P Trunk is compressible. PTV is compressible. PTV is compressible. RT PerV is compressible. LT PerV is compressible. SFJ is INCOMPETENT and measures 0.56 cm. SFJ is competent and measures 0.53 cm. GSV proximal thigh measures 0.34 x 0.34 cm. GSV proximal thigh measures 0.29 x 0.28 cm. GSV at knee measures 0.32 x 0.32 cm. GSV at knee measures 0.36 x 0.35 cm. GSV is competent throughout. GSV is competent throughout. ASV mid calf is INCOMPETENT for greater than SSV proximal calf is competent and measures 0.5 seconds and measures 0.30 x 0.30 cm. 0.43 x 0.47 cm. SSV proximal calf is INCOMPETENT for greater than 0.5 seconds and measures 0.75 x 0.76 cm. Varicose vein noted conecting GSV knee to SSV mid. Procedure This is a venous duplex using B-mode, color flow and spectral Doppler. Exam performed in department. Patient was scanned in reverse Trendelenburg position during reflux assessment. VL/Venous Duplex US - Tony Extrem Interpretation Summary Deep veins of the bilateral lower extremities are patent and compressible segme ntally. There is no evidence of bilateral lower extremity deep vein thrombosis. The bilateral great saphenous veins appear patent and compressible segmentally. Positive for reflux in the right femoral vein, saphenofemoral junction, accesso ry saphenous vein, small saphenous vein. Positive for reflux in the left popliteal vein Ordering Physician: Dafne Frye Referring Physician: Omi Gann Performed By: Leisa Rivera RVT
== END | disposition home or self-care (01) ==
PROVIDERS: PCP Family Medicine; Referring Provider Physician Assistant; Visit Provider Physician Assistant
DX: R60.0 Localized edema (principal); M79.89 Other specified soft tissue disorders
CPT/HCPCS: 93970

== ENCOUNTER → 2024-07-20 | Outpatient (CLI) | payer MEDICARE, OTHER, SELFPAY ==
[2024-07-20 07:47] LABS: Absolute Lymphocyte Count 1.55 X10^3/uL (0.83-4.51); Absolute Neutrophil Count 3.6 X10^3/uL (2.0-7.7); Basophil# 0.03 X10^3/uL; Basophil% 0.5 % (0-1); Eosinophil# 0.12 X10^3/uL; Hemoglobin 13.8 g/dL (13.0-16.5); Lymphocyte # 1.55 X10^3/ul (0.83-4.51); Mean Corp Hgb Conc 34.5 g/dL (32-36); Mean Corpuscular Hgb 31.8 pg (27.0-32.0); Mean Corpuscular Volume 92.2 fL (80-94); Mean Platelet Vol. 9.1 fl (6.2-12.0); Monocyte# 0.62 X10^3/uL; Monocyte% 10.4 % (0-10); NRBC Flagged by Analyzer 0 % (0-5); Neutrophil # 3.62 X10^3/uL (2.7-7.7); Neutrophil % 60.6 % (47-70); Platelet Count 240 K/mm3 (150-450); RBC Distribution Width SD 40.6 fl (35.1-43.9); Red Blood Count 4.34 M/mm3 (4.6-6.2)
[2024-07-20 08:14] LABS: ALB/GLOB Ratio 1.7 RATIO (0.9-2.4); AST(SGOT) 18 U/L (<=37); Alanine Aminotransfer ALT/SGPT 16 U/L (<=46); Albumin, Serum 4.3 g/dL (3.4-4.8); Alkaline Phosphatase 82 U/L (40-129); Anion Gap 11 (5-15); BUN 14 mg/dL (4-19); BUN/Creat Ratio 15.2 RATIO (10-20); Calcium,Total 9.1 mg/dL (7.6-11.0); Carbon Dioxide 25.7 mmol/L (21.0-32.0); Chloride 102 mmol/L (98-108); Cholesterol 164 mg/dL (<=200); Creatinine, Serum 0.91 mg/dL (0.70-1.20); EST Glomerular Filtration Rate 92 (>60); Globulin 2.5 g/dL (2.2-4.2); Glucose 156 mg/dL (70-99); High Density Lipoprotein 40 mg/dL; Low Density Lipoprotein Calc. 106 mg/dL; Potassium 4.1 mmol/L (3.3-5.1); Protein, Total 6.8 g/dL (5.9-8.4); Sodium Level 139 mmol/L (133-145); Total Bilirubin 0.55 mg/dL (0.00-1.30); Triglycerides 92 mg/dL; Very Low Density Lipoprotein 18 mg/dL (5-40); cholesterol:hdl ratio screen 4.15
== END | disposition home or self-care (01) ==
LOC: LAB 07:24
PROVIDERS: PCP Family Medicine; Referring Provider Family Medicine; Visit Provider Family Medicine
DX: I10 Essential (primary) hypertension (principal)
CPT/HCPCS: 36415; 80053; 80061; 84443; 85025

== ENCOUNTER → 2024-07-25 | Outpatient (CLI) | payer MEDICARE, OTHER, SELFPAY ==
[2024-07-25 13:52] LABS: PSA,Total - Annual Screen 0.39 ng/mL (0.02-4.00)
== END | disposition home or self-care (01) ==
LOC: MFPLAB 09:39
PROVIDERS: PCP Family Medicine
DX: Z12.5 Encounter for screening for malignant neoplasm of prostate (principal)
CPT/HCPCS: 36415; 84153; G0103

== ENCOUNTER → 2025-01-15 | Outpatient (CLI) | payer MEDICARE, OTHER, SELFPAY ==
[2025-01-15 15:27] LABS: Creatinine, Urine (random) 105.00 mg/dL (39.00-259.00); Microalbumin,Random Urine < 12.0 mg/L (<20 mg/L)
== END | disposition home or self-care (01) ==
LOC: LABSPEC 11:33
PROVIDERS: PCP Family Medicine; Visit Provider Family Medicine
DX: I10 Essential (primary) hypertension (principal); R73.03 Prediabetes
CPT/HCPCS: 82043; 82570